=== PATIENT | female | born 1970 | race Caucasian/White ===

== ENCOUNTER 2018-12-21 09:02 | Outpatient (CLI) | payer OTHER ==
--- NOTE | 2018-12-21 12:17 | RAD ---
BARIUM SWALLOW: HISTORY: Patient with dysphagia, reflux-type symptoms. History of gastric band placement in approximately 201 0. FINDINGS: The patient ingested the barium without difficulty. The gastric band is in good position. The contr ast passes through the gastric band without difficulty. During the examination, the patient did not have any reflux but did have some retrograde propulsion of the barium within the esophagus which did seem to recreate her symptoms. IMPRESSION: No evidence of obstruction. No dilatation of the esophagus. Some retrograde propulsion of the contr ast column within the esophagus itself without any reflux from the stomach. POS: SRIDHAR
== END 2018-12-21 09:03 | disposition home or self-care (01) ==
LOC: RAD 09:02
PROVIDERS: ATTEND Surgery
DX: R13.10 Dysphagia, unspecified (principal)
CPT/HCPCS: 74220

== ENCOUNTER 2019-01-29 10:05 | Outpatient (CLI) | payer OTHER | END 2019-01-29 10:06 | disposition home or self-care (01) | LOC: DTY/OP 10:05 | PROVIDERS: ATTEND Surgery | DX: E66.01 Morbid (severe) obesity due to excess calories (principal) | CPT/HCPCS: 97802 ==

== ENCOUNTER 2019-06-05 08:44 | Inpatient (IN) | payer OTHER ==
[2019-06-05] MEDS ORDERED: Ondansetron PF 4 MG/2 ML Vial ONE (09:08)
[2019-06-05] MEDS ORDERED: Nitroglycerin 2% Ointment 1 INCH/1 GM Packet ONE ×2 (09:08→10:33)
[2019-06-05] MEDS ORDERED: Aspirin Chewable 81 MG TAB ONE (09:08)
[2019-06-05 09:18] LABS: #Eosinphils 0.3 thou/uL (0.0-0.7); #Lymphocytes 1.3 thou/uL (1.20-3.40); #Monocytes 0.5 thou/uL (0.11-0.59); #Neutrophils 4.7 thou/uL (1.40-6.50); %Basophils 0.5 % (0.0-1.0); %Eosinophils 3.9 % (0.0-10.0); %Lymphocytes 19.1 % (21.0-51.0); %Monocytes 6.6 % (0.0-10.0); %Neutrophils 69.9 % (42.0-75.0); Hemoglobin 13.3 g/dL (12.0-16.0); Mean Corpuscular HGB CONC 32.1 g/dL (32.0-36.0); Mean Corpuscular Volume 87.2 fL (78.0-98.0); Mean Platelet Volume 7.5 fL (7.4-10.4); Platelet Count 229 thou/uL (130-400); RBC Distribution Width 12.5 % (11.5-14.5); Red Blood Cell (RBC) Count 4.73 mill/uL (4.20-5.40); White Blood Cell (WBC) Count 6.8 thou/uL (4.8-10.8)
[2019-06-05] MEDS ORDERED: Nitroglycerin 0.4 MG TAB 1 EACH ONE (09:21)
--- NOTE | 2019-06-05 09:22 | RAD ---
SINGLE VIEW CHEST: Date: 06/05/19 COMPARISON: 04/09/10. HISTORY: Chest pain. FINDINGS: Single view of the chest shows a normal sized cardiomediastinal silhouette. There is no evidence of c onsolidation, mass, or pleural effusion. The bones are unremarkable. IMPRESSION: No evidence of acute cardiopulmonary disease. POS: CET
[2019-06-05 09:41] LABS: ALT (SGPT) 19 U/L (8-55); AST (SGOT) 19 U/L (5-34); Albumin 3.9 g/dL (3.5-5.0); Alkaline Phosphatase 103 U/L (40-150); Anion Gap 13 mmol/L (10-20); BUN (Urea Nitrogen) 8 mg/dL (7.0-18.7); Bilirubin, Total 0.4 mg/dL (0.2-1.2); CK (CPK) 41 U/L (29-168); Calc. Creatinine Clearance 0 mL/min (70-130); Calcium 9.2 mg/dL (7.8-10.44); Carbon Dioxide 22 mmol/L (22-29); Chloride 106 mmol/L (98-107); Estimated GFR-MDRD 89; Globulin 3.8 g/dL (2.4-3.5); Glucose 115 mg/dL (70-105); Lipase 16 U/L (8-78); Potassium 4.1 mmol/L (3.5-5.1); Protein, Total 7.7 g/dL (6.0-8.3); Sodium 137 mmol/L (136-145)
[2019-06-05] MEDS ORDERED: Zolpidem Tartrate 5 MG TAB PO PRN (12:18)
[2019-06-05] MEDS ORDERED: Loperamide HCl 2 MG CAP PO PRN (12:18)
[2019-06-05] MEDS ORDERED: Bisacodyl 10 MG SUPP PR PRN (12:18)
[2019-06-05] MEDS ORDERED: Ondansetron PF 4 MG/2 ML Vial IVP PRN (12:18)
[2019-06-05] MEDS ORDERED: Senokot S 8.6-50 MG TAB PO PRN (12:18)
[2019-06-05] MEDS ORDERED: Calcium Carbonate 500 MG ChewTAB PO PRN (12:18)
[2019-06-05] MEDS ORDERED: hydrALAZINE 20 MG/ML VIAL SLOW IVP PRN (12:18)
[2019-06-05] MEDS ORDERED: Acetaminophen 325 MG TAB PO PRN (12:18)
[2019-06-05] MEDS ORDERED: Cepastat Lozenges 1 LOZ PO PRN (12:18)
[2019-06-05] MEDS ORDERED: Nitroglycerin 0.4 MG TAB (25 Tab Bottle) PO PRN (12:18)
[2019-06-05] MEDS ORDERED: Loratadine 10 MG TAB PO PRN (12:18)
[2019-06-05] MEDS ORDERED: Sodium Chloride 0.65% Nasal 44 ML BOT EA NARE PRN (12:18)
[2019-06-05] MEDS ORDERED: Diabetic Tussin 200 MG/10 ML UDCUP PO PRN (12:18)
[2019-06-05] MEDS ORDERED: Artificial Tears 18 DROP/0.9 ML EA EYE PRN (12:18)
--- NOTE | 2019-06-05 12:41 | HP ---
PRIMARY CARE PHYSICIAN: Raul Aponte. REASON FOR ADMISSION: Chest discomfort. HISTORY OF PRESENT ILLNESS: This is a 48-year-old female, who has underlying morbid obesity and she required gastric lap banding in the past. The patient has chronic difficulty swallowing. The patient reports that whenever she lies down flat, she cannot swallow and for that reason, the patient is following Dr. Landon as an outpatient basis. The patient reports that 5 months ago, she saw Dr. Landon. At that time, she was given instruction that she needs lap banding to be removed for her esophageal symptoms, but as insurance was not approving that procedure and procedure was not done so far, the patient continued to experience difficulty swallowing with food on intermittent basis. The patient also reports that at that time, the patient had all investigation done by Dr. Landon. The patient also reports that she had stress test done, but we were not able to retrieve that record in our hospital system record. This morning, the patient was going to work and all of suddenly when she was driving, at that time she was having substernal chest discomfort, which was radiating to neck as well as left side of the chest, 6/10 in intensity without any association of shortness of breath, but she was feeling nausea. She did not have any associated diaphoresis. She went to work, but her symptoms was not subsiding and that is why around 8:00 a.m., she decided to go to emergency room for evaluation. When she arrived to emergency room, she was hypertensive. When I saw this patient in the emergency room, her symptoms improved. Today in the emergency room, cardiogram was normal. Routine blood tests including cardiac enzymes were negative. Chest x-ray was normal. She was treated with nitroglycerin sublingual and after that, the patient's symptoms improved. The patient denies any palpitation, dizziness or syncope. She does have dyspnea on exertion, which she attributes to be due to her sedentary lifestyle. She denies any immobilization, lower extremity edema or calf tenderness. She denies any pleurisy. She denies any upper or lower respiratory symptoms. She denies any constipation or diarrhea. REVIEW OF SYSTEMS: CONSTITUTIONAL: Negative for weight loss or gain, ability to conduct usual activities. SKIN: Negative for rash, itching. EYES: Negative for double vision, pain. ENT/MOUTH: Negative for nose bleeding, neck stiffness, pain, tenderness. CARDIOVASCULAR: Negative for palpitations, dyspnea on exertion, orthopnea. RESPIRATORY: Negative for shortness of breath, wheezing, cough, hemoptysis, fever or night sweats. GASTROINTESTINAL: Negative for poor appetite, abdominal pain, heartburn, nausea, vomiting, constipation, or diarrhea. GENITOURINARY: Negative for urgency, frequency, dysuria, nocturia. MUSCULOSKELETAL: Negative for pain, swelling. NEUROLOGIC/PSYCHIATRIC: Negative for anxiety, depression. ALLERGY/IMMUNOLOGIC: Negative for skin rash, bleeding tendency. Please see my HPI for pertinent positives and negatives. All other review of systems reviewed and negative except as mentioned in the HPI. PAST MEDICAL HISTORY: Morbid obesity required gastric banding surgery in the past. PAST SURGICAL HISTORY: Lap banding, appendicectomy, cholecystectomy, and tubal ligation. PAST PSYCHIATRIC HISTORY: Anxiety and depression. SOCIAL HISTORY: The patient is working in [employer] in [place]. She denies any tobacco, alcohol, or illicit drug abuse. FAMILY HISTORY: Positive for cardiac disease among several family members. ALLERGIES: NO KNOWN DRUG ALLERGIES. CURRENT HOME MEDICATIONS: The patient is not taking any medication at this point. EMERGENCY ROOM COURSE: The patient is given nitroglycerin patch, nitroglycerin, aspirin, Zofran and IV fluid. PHYSICAL EXAMINATION: VITAL SIGNS: On arrival, blood pressure 176/105, pulse 86, respiratory rate 16, temperature 99.1, and saturation 97% on room air. Weight 141 kg. GENERAL: The patient is currently alert and awake, no obvious acute distress. HEENT: Head; normocephalic, atraumatic. Eyes; pupils round, reactive to light. Extraocular muscle intact. ENT; oropharynx within normal limits. Moist mucous membranes. No oral lesion. No pharyngeal erythema. No exudate. NECK: Supple. No JVD. No thyromegaly. No carotid bruit. No jugular venous distention. LUNGS: Clear to auscultation without any rhonchi or rales. CARDIAC: S1, S2 appears regular. No murmur. No gallop. No rub. ABDOMEN: Obesity present. Epigastric discomfort noted on deep palpation. No peritoneal sign. No Cote sign. No suprapubic tenderness. No organomegaly. No mass. BACK: Unremarkable. No CVA tenderness. UPPER EXTREMITIES: Passive movement of all joints are normal. Lower extremity, no edema. Good distal pulsation. No calf tenderness. SKIN: No skin rash. HEMATOLOGICAL: No lymphadenopathy. PSYCHIATRIC: Normal affect. NEUROLOGIC: Nonfocal examination. SIGNIFICANT LABORATORY DATA: EKG showing normal sinus rhythm without any obvious acute ST-T changes. Chest x-ray, based on my review, no acute cardiopulmonary process. CBC; WBC 6.8, hemoglobin 13.3, platelet 229. BMP; sodium 137, potassium 4.1, chloride 106, carbon dioxide 22, BUN 8, creatinine 0.70, glucose 115, calcium 9.2. LFTs; AST 19, ALT 19, alkaline phosphatase 103, albumin 3.9. Troponin less than 0.010. BNP less than 10. Lipase 16. ASSESSMENT AND PLAN: 1. Acute chest pain. I am suspecting the patient's chest pain description is related with esophageal spasm versus gastroesophageal reflux disease. Her EKG is nonspecific and her cardiac enzymes are negative. We will rule out acute coronary syndrome with 3 cardiac enzymes. We will observe on telemetry floor. We will check lipid profile for risk stratification tomorrow. We will continue with nitroglycerin patch q.8 hourly. We will also continue aspirin 81 mg p.o. daily as this patient reports that she had stress test done in November, December, and January of this year and that is why we will try to get medical record. If the patient did not have any stress test done recently, then we will consider doing stress test tomorrow morning. If she had negative stress test, then we will not repeat again. If troponins are negative and telemetry remains unremarkable, then we will consider discharging her home and she needs to follow up as an outpatient basis with Dr. Landon and we will consider adding proton pump inhibitor on discharge. 2. Morbid obesity. The patient required gastric banding surgery in the past. The patient needs to follow up with Dr. Landon as an outpatient basis. Dietary education given. Weight loss education given. 3. Deep venous thrombosis prophylaxis not needed because we are expecting discharge in 24 hours. 4. Gastrointestinal prophylaxis. Pepcid 20 mg p.o. b.i.d. 5. Anxiety and depression. The patient is not on any specific medication at home. CODE STATUS: The patient is full code. The patient does not have any surrogate decision maker. DISPOSITION AND PLAN: Based on clinical course, likely 24 hours. Plan of care discussed with the patient in detail. Job ID: [id number]
[2019-06-05 13:15] LABS: Troponin I Less than 0.010 ng/mL (< 0.028)
[2019-06-05 16:23] LABS: Troponin I Less than 0.010 ng/mL (< 0.028)
[2019-06-05] MEDS: HYDROcodone/Acetaminophen 5/325 mg Tablet PO PRN ×2 (17:06→23:13)
[2019-06-05] MEDS: Famotidine 20 MG TAB PO SCH (22:04)
[2019-06-05] MEDS: Ondansetron ODT 4 MG TAB PO PRN (22:05)
[2019-06-06 05:43] LABS: Cardiac Risk 3.7 (Less than 4.5)
[2019-06-06] MEDS: Famotidine 20 MG TAB PO SCH ×2 (09:26→20:02)
[2019-06-06] MEDS: Aspirin Chewable 81 MG TAB PO SCH (09:26)
[2019-06-06] MEDS ORDERED: CEFAZOLIN 2 GM in Premix Bag 1 BAG IVPB SCH (17:15)
--- NOTE | 2019-06-06 18:25 | CON ---
DATE OF CONSULTATION: CHIEF COMPLAINT: Severe chest pain. HISTORY OF PRESENT ILLNESS: This is a 48-year-old female, who had a laparoscopic band placed about 10 years ago. progressive dysphagia. She was admitted to the hospital with severe chest pain, in which KS was ruled out. PAST MEDICAL HISTORY: Morbid obesity. PAST SURGICAL HISTORY: Cholecystectomy, laparoscopic band, appendectomy, and bilateral tubal ligation. MEDICATIONS: None. ALLERGIES: NO KNOWN DRUG ALLERGIES. SOCIAL HISTORY: She is . She works as a newspaper deliverer. No tobacco or alcohol. FAMILY HISTORY: Her father had a CVA. PHYSICAL EXAMINATION: VITAL SIGNS: Temperature 98.4, pulse 78, and blood pressure . GENERAL: She is awake and alert, in no apparent distress. HEENT: No jaundice. LUNGS: Clear. HEART: Regular rate and rhythm. ABDOMEN: Soft, nondistended, and nontender. EXTREMITIES: Unremarkable. LABORATORY DATA: Her white count is 6.8, H and H are 13 and 41, and platelet count 229. Electrolytes; elevated glucose at 115, otherwise unremarkable. IMAGING STUDIES: Chest x-ray negative. ASSESSMENT: Very symptomatic laparoscopic band. PLAN: Laparoscopic removal of laparoscopic band and port. CONSENT: I have discussed the planned procedure as well as risk of bleeding; infection; injury to esophagus, spleen, loops of bowel; and need to open, she understands and gives informed consent. Job ID: [id number]
--- NOTE | 2019-06-06 21:14 | PRG ---
DATE OF SERVICE: 06/06/2019 SUBJECTIVE: Ms. Rangel is a 48-year-old female with past medical history significant for morbid obesity, status post lap band procedure, who has presented to the hospital with complaints of chest pain. ACS has been ruled out in this patient. She continues to complain of dysphagia and intermittent chest pain over the past several months. This morning, she feels better after hydrocodone. She denies any chest pain at this time. She denies any shortness of breath. No other complaints. OBJECTIVE: VITAL SIGNS: Blood pressure 116/59, pulse 68, O2 saturation 95% on room air, and temperature 97.5. GENERAL: This is a morbidly obese female, resting comfortably in bed , in no acute distress. HEENT: Head is atraumatic and normocephalic. Mucous membranes are moist. NECK: Trachea is midline. No JVD. CV: S1 and S2. Regular rate and rhythm. No appreciable murmurs, rubs or gallops. LUNGS: Regular respiratory rate and pattern, overall clear to auscultation bilaterally. ABDOMEN: Positive bowel sounds. Soft and obese. EXTREMITIES: No appreciable pitting edema. NEUROLOGIC: Cranial nerves 2 through 12 grossly intact. The patient is nonfocal. LABORATORY DATA: White blood cell count 6.8, hemoglobin 13.3, hematocrit 41.2, and platelets 229. Sodium 137, potassium 4.1, BUN 8, and creatinine 0.7. AST, ALT , and alk phos all within normal limits. Troponin is negative x3. Cholesterol 149, LDL 91, HDL 40, and triglycerides 90. ASSESSMENT: 1. Chest pain - acute coronary syndrome ruled out, questionably gastrointestinal in nature and secondary to lap band. 2. Known esophageal dysmotility and dysphagia, presumed secondary to lap band. 3. Morbid obesity. PLAN: At this time, I have consulted Dr. Landon for further recommendations, who has indeed recommended removal of lap band. He will proceed tomorrow. She should be at low risk from a cardiovascular standpoint secondary to her recent stress test, which was obtained from Dr. Bauman' office, performed in January 2019, which showed no reversible ischemia, normal EF. N.p.o. after midnight. Further recommendations based on hospital course. Job ID: [id number] [facility]
[2019-06-07] MEDS ORDERED: Lorazepam 2 MG/ML VIAL SLOW IVP PRN (06:00)
[2019-06-07 08:17] VITALS: TEMP 98.2
[2019-06-07] MEDS: Famotidine 20 MG TAB PO SCH (08:47)
[2019-06-07] MEDS: Aspirin Chewable 81 MG TAB PO SCH (08:49)
[2019-06-07] MEDS ORDERED: Fentanyl 100 MCG/2 ML VIAL ONE ×3 (09:35→13:20)
[2019-06-07] MEDS ORDERED: Bupivacaine/Epinephrine 0.25% 30 ML VIAL ONE (09:53)
[2019-06-07] MEDS ORDERED: ceFAZolin Sodium (SDC) 2 GM/100 ML BAG ONE (10:02)
[2019-06-07] MEDS ORDERED: Scopolamine 1.5 mg/72 hour Patch ONE (10:28)
[2019-06-07] MEDS ORDERED: Midazolam HCl 2 mg/2 ml Vial ONE (10:28)
--- NOTE | 2019-06-07 11:11 | PRG ---
DATE OF SERVICE: 06/07/2019 SUBJECTIVE: Ms. Rangel is a 48-year-old female with past medical history significant for morbid obesity, status post Lap-Band procedure many years ago, who was presented to the hospital with complaints of chest pain. ACS has been ruled out in this patient. She continues to complain of some intermittent and vague chest pain and abdominal pain this morning, which is mild and it has been ongoing for the past several months. She denies any chest pain or shortness of breath. She denies any nausea. No other complaints today. She is scheduled for Lap-Band removal with Dr. Landon sometime this morning. OBJECTIVE: VITAL SIGNS: Blood pressure is 129/63, pulse is 77, O2 saturation is 96% on room air, respirations are 20, temperature is 98.2. GENERAL: This is a morbidly obese female, resting comfortably in bed, in no acute distress. HEENT: Head is atraumatic and normocephalic. Mucous membranes are moist. NECK: Trachea is midline. No JVD. CV: S1 and S2. Regular rate and rhythm. No appreciable murmurs, rubs, or gallops. LUNGS: Regular respiratory rate and pattern. Overall, clear to auscultation bilaterally. ABDOMEN: Positive bowel sounds. Soft, obese. EXTREMITIES: No appreciable pitting edema. NEUROLOGIC: Cranial nerves 2 through 12 are grossly intact. The patient is nonfocal. SKIN: Warm and dry. LABORATORY DATA: No new laboratory data. ASSESSMENT: 1. Chest pain, acute coronary syndrome ruled out, normal MPI performed at Dr. Bauman' office in January 2019, etiology is questionable, gastrointestinal in nature and secondary to Lap-Band. 2. Known esophageal dysmotility and dysphagia, presumed secondary to Lap-Band. 3. Morbid obesity. PLAN: Dr. Landon will be taking the patient to the operative suite this morning for Lap-Band removal. We will continue to monitor her postoperative course closely. Hopefully, her symptoms will improve after the procedure. She will be counseled on the importance of weight loss as well. We will continue current medical therapy. Job ID: [id number]
[2019-06-07] MEDS ORDERED: Morphine 2 MG/ML SYRINGE SLOW IVP PRN (11:41)
[2019-06-07] MEDS ORDERED: Morphine 4 MG/ML VIAL SLOW IVP PRN (11:41)
[2019-06-07] MEDS ORDERED: Hydrocodone-Acetamin 15 ML UDCUP PO PRN (11:41)
--- NOTE | 2019-06-07 12:22 | OP ---
DATE OF PROCEDURE: 06/07/2019 PREOPERATIVE DIAGNOSIS: Lap band intolerance with esophageal spasm and chest pain. PROCEDURE PERFORMED: Laparoscopic removal of lap band and port. INDICATIONS: A 48-year-old female, who had a lap band placed about 10 to 15 years ago. She has had multiple problems with it. It is completely empty and she is still having issues with severe dysphagia and recently has been admitted to the hospital for chest pain, which was thought to be cardiac, but turned out to be esophageal spasm, probably related to the band. FINDINGS: Very thick capsule. The system was intact. There was no fluid within the system. DESCRIPTION OF PROCEDURE: After informed consent was obtained, the patient was taken to the operating room and given general endotracheal anesthesia. She was placed in the supine position. Abdomen was prepped and draped in usual fashion. Local anesthesia was infiltrated subcutaneously and deep. A 5-mm incision was performed approximately 8 inches below the xiphoid slightly to the left. Veress needle was inserted. Drop test was performed. Pneumoperitoneum was created to a volume of 2 L of carbon dioxide. Utilizing a bladeless 5-mm trocar and 0-degree laparoscope, direct visual entry into the abdominal cavity was performed. Pneumoperitoneum was then created to a pressure of 15 mmHg. The patient was then placed in steep reverse Trendelenburg position. Tonia liver retractor inserted. Left lobe of the liver retracted superiorly. The tubing of the band was located and then divided and then traced down to the buckle. After two 5-mm ports were placed, the capsule was incised. The buckle was dissected out. The buckle was unbuckled and then the lap band removed from around the stomach. The lap band was then removed from the abdomen. Trocars and retractors removed. Skin incision was enlarged in order to extract the port. The port was excised utilizing electrocautery to open the capsule, then it was removed. Hemostasis was assured. The subcutaneous tissue was reapproximated with interrupted 3-0 Vicryl and skin closed with both interrupted and running 4-0 Vicryl. Dermabond applied. The patient tolerated the procedure well, transferred to Recovery in good condition. Sponge and needle count verified correct x2. Job ID: [id number]
[2019-06-07] MEDS ORDERED: Promethazine HCl 25 MG/ML VIAL IM/IV PRN (13:20)
[2019-06-07] MEDS ORDERED: Ondansetron HCl/PF 4 MG/2 ML Vial IVP PRN (13:20)
[2019-06-07] MEDS ORDERED: Non-Formulary Medication 1 EACH PO PRN (13:20)
[2019-06-07] MEDS: HYDROcodone/Acetaminophen 5/325 mg Tablet PO PRN (16:17)
[2019-06-07 16:58] VITALS: BP 136/83
[2019-06-07] MEDS: Ondansetron ODT 4 MG TAB PO PRN (17:19)
--- NOTE | 2019-06-08 20:47 | DIS ---
DATE OF ADMISSION: 06/05/2019 DATE OF DISCHARGE: 06/07/2019 CHIEF COMPLAINT: On admission: Chest pain. DISCHARGE DIAGNOSES: 1. Chest pain secondary to esophageal spasm, presumed secondary to symptomatic lap band, status post lap band removal by Dr. Landon. 2. Known esophageal dysmotility and dysphagia, presumed secondary to symptomatic lap band. 3. Morbid obesity. BRIEF HOSPITAL COURSE: The patient is a 48-year-old female with past medical history significant for morbid obesity status post lap band procedure many years ago, who presented to the hospital with complaints of chest pain. The pain was nonexertional and constant. She was at work when the chest discomfort began. She works at [employer]. She drove herself to the hospital because her symptoms did not suzy on their own and she was admitted for chest pain rule out. ACS was ruled out. Troponins were negative x3. Recent MPI was obtained from Dr. Bauman' office, which was performed in January 2019 and showed normal no evidence of reversible ischemia and normal left ventricular systolic function. Dr. Landon was consulted, and he recommended lap band removal. The patient was taken to the operating suite and underwent successful removal. She tolerated the procedure well. She is tolerating a bariatric diet without any problems. She has ambulated the halls without any problems. She has no complaints to me at this time. Per Dr. Landon, the patient to be discharged after the eating and ambulation. DISCHARGE CONDITION: Stable. DISCHARGE DISPOSITION: Home. DISCHARGE INSTRUCTIONS AND FOLLOWUP: The patient was not on any documented home medications, Dr. Landon has sent her home with prescriptions for hydrocodone elixir as well as Zofran. She will continue these medications as needed and follow up with Dr. Landon for postop followup. I have encouraged her on the importance of diet, weight loss, and exercise. She will be discharged home today in good condition. Job ID: [id number]
== END 2019-06-07 18:53 | disposition home or self-care (01) | DRG 989 ==
LOC: ERS 08:44 → OBSVTOIN 12:08 → 2SW 12:08 → SURG A 06-07 11:49 → 2SW 06-07 13:22
PROVIDERS: ADMIT Internal Medicine; ATTEND Internal Medicine
PROC: 0DP64CZ Removal of Extraluminal Device from Stomach, Percutaneous Endoscopic Approach (ICD-10-PCS; principal; 2019-06-07)
DX: K95.09 Other complications of gastric band procedure (principal); K22.4 Dyskinesia of esophagus; F41.9 Anxiety disorder, unspecified; F32.9 Major depressive disorder, single episode, unspecified; Z90.49 Acquired absence of other specified parts of digestive tract; Z98.51 Tubal ligation status
CPT/HCPCS: 36415; 36416; 71045; 80053; 80061; 82550; 83690; 83880; 84484; 85025; 93005; 96361; 96374; J0690; J2060; J2250; J2405; J3010; Q0162

== ENCOUNTER 2021-10-04 15:23 | Emergency (ER) | payer OTHER, SELFPAY ==
[~2021-10-04 15:23] MED LIST: Iopamidol-370 76% 500 ML 1 ML ONE
[2021-10-04 15:52] LABS: #Eosinphils 0.3 thou/uL (0.0-0.7); #Lymphocytes 1.5 thou/uL (1.20-3.40); #Monocytes 0.5 thou/uL (0.11-0.59); #Neutrophils 4.5 thou/uL (1.40-6.50); %Basophils 0.7 % (0.0-1.0); %Eosinophils 3.8 % (0.0-10.0); %Lymphocytes 22.1 % (21.0-51.0); %Monocytes 6.9 % (0.0-10.0); %Neutrophils 66.6 % (42.0-75.0); Hemoglobin 13.7 g/dL (12.0-16.0); Mean Corpuscular HGB CONC 32.3 g/dL (32.0-36.0); Mean Corpuscular Hemoglobin 30.2 pg (27.0-31.0); Mean Corpuscular Volume 93.3 fL (78.0-98.0); Mean Platelet Volume 7.3 fL (7.4-10.4); Platelet Count 245 thou/uL (130-400); RBC Distribution Width 12.5 % (11.5-14.5); Red Blood Cell (RBC) Count 4.56 mill/uL (4.20-5.40); White Blood Cell (WBC) Count 6.7 thou/uL (4.8-10.8)
[2021-10-04 16:16] LABS: ALT (SGPT) 20 U/L (8-55); AST (SGOT) 17 U/L (5-34); Albumin 3.7 g/dL (3.5-5.0); Alkaline Phosphatase 90 U/L (40-110); Anion Gap 9 mmol/L (10-20); BUN (Urea Nitrogen) 10 mg/dL (9.8-20.1); Bilirubin, Total 0.4 mg/dL (0.2-1.2); Calc. Creatinine Clearance 0 mL/min (70-130); Calcium 9.5 mg/dL (7.8-10.44); Carbon Dioxide 28 mmol/L (22-29); Chloride 108 mmol/L (98-107); Glucose 86 mg/dL (70-105); Protein, Total 7.7 g/dL (6.0-8.3); Sodium 141 mmol/L (136-145)
[2021-10-04] MEDS ORDERED: Ondansetron PF 4 MG/2 ML Vial ONE (17:23)
[2021-10-04] MEDS ORDERED: Morphine 4 MG/ML VIAL ONE (17:23)
[2021-10-04] MEDS ORDERED: Acetaminophen 500 MG TAB ONE (17:58)
== END 2021-10-04 19:48 | disposition home or self-care (01) ==
LOC: ERS 15:23
DX: R10.13 Epigastric pain (principal); R19.7 Diarrhea, unspecified; K44.9 Diaphragmatic hernia without obstruction or gangrene; Z87.891 Personal history of nicotine dependence
CPT/HCPCS: 36415; 74177; 80053; 83605; 83690; 85025; 96374; J2270; J2405; Q9967